=== PATIENT | female | born 1965 | race Two or more races ===

== ENCOUNTER 2016-10-12 13:46 | Emergency (ER) | payer OTHER ==
[~2016-10-12] VITALS: Ht 157.5 cm; Wt 72.6 kg
[~2016-10-12 13:46] MED LIST: ACULAR5 ML LEFT EYE; ALBUTEROL SULF8.5 GM INH; AZITHROMYCIN250 MG ORAL; CIPRO500 MG PO; FLONASE1 SPRAYS NASAL; IBUPROFEN600 MG ORAL; IMODIUM2 MG/10 ML GT; NKM; NORCO 5-325 TA1 EACH ORAL; POLYTRIM EYE DR10 M1 LEFT EYE; PROAIR HFA8.5 GM INH; PROMETHAZINE-D118 ML ORAL; ZITHROMAX250 MG ORAL; ZOFRAN4 M1 ORAL; ZYRTEC10 M3 ORAL
[2016-10-12 14:01] VITALS: BP 125/73
--- NOTE | 2016-10-12 14:29 | Emergency Room Report ---
History of Present Illness General Chief Complaint: Skin Rash/Abscess Source: Patient Present Illness HPI 50 YO female presents to the ED c/o pain, swelling, and erythema of left ear with retained earring x 2 weeks. The patient denies discharge from the ear, reports tenderness upon palpation reports her pain as 9/10 in severity. Patient states that initially the anterior portion of the piercing started to close and was covered with and so patient attempted to pull the earring through the back opening, and was unsuccessful. She denies any compromise. denies fevers, chills, or tinnitus. Denies CP, Palpitations, LOC, AMS, dizziness, Changes in Vision, Sensation, paresthesias, or a sudden severe headache. Pt states she is UTD with Tetanus. Allergies: Coded Allergies: PENICILLINS (Unverified Allergy, Unknown, 02/11/14) Patient History Past Medical History: see triage record Past Surgical History: none Pertinent Family History: none Last Menstrual Period: Jul 2016 Now: No - unsure if in menopause, preg test 4 weeks ago negative Immunizations: UTD Reviewed Nursing Documentation: PMH: Agreed, PSxH: Agreed Nursing Documentation-PMH Past Medical History: No Stated History Review of Systems All Other Systems: negative except mentioned in HPI Physical Exam Vital Signs Date Time Temp Pulse Resp B/P Pulse Ox O2 Delivery O2 Flow Rate FiO2 10/12/16 13:53 98.6 92 18 125/73 100 Room Air Sp02 EP Interpretation: reviewed, normal General Appearance: no apparent distress, alert, GCS 15, non-toxic Head: normocephalic, atraumatic Eyes: bilateral eye PERRL, bilateral eye normal inspection ENT: hearing grossly normal, normal pharynx, no angioedema, normal voice, TMs + canals normal, other - the auricle of the left ear has a partially embeded earring retained in the cartilagenous tissues, there is mild erythema and swelling, no d/c noted. Neck: full range of motion, supple/symm/no masses Respiratory: chest non-tender, lungs clear, normal breath sounds, speaking full sentences Cardiovascular #1: regular rate, rhythm, no edema Musculoskeletal: back normal, gait/station normal, normal range of motion, non- tender, no calf tenderness Neurologic: alert, oriented x3, responsive, motor strength/tone normal, sensory intact, speech normal Psychiatric: judgement/insight normal, memory normal, mood/affect normal, no suicidal/homicidal ideation Skin: normal color, no rash, warm/dry, well hydrated, other - erythema and swelling noted to the left auricle , with embeded earring. Lymphatic: no adenopathy Procedures Incision and Drainage Incision and Drainage : Consent: Verbal Site: Left auricle Blade Size: 11 I & D Procedure: betadine prep Wound Location: head - left auricle Wound's Depth, Shape: superficial Wound Length (cm): 0 Wound Explored: foreign body removed - earring. Irrigated w/ Saline (ccs): 60 Anesthesia: 1% Lidocaine Volume Anesthetic (ccs): 1 Splint Applied?: No Sling Applied?: No Patient Tolerated: Well Complications: None Medical Decision Making PA Attestation Dr. pang is my supervising Physician whom patient management has been discussed with. Diagnostic Impression: Primary Impression: FOREIGN BODY IN LEFT EAR, INITIAL ENCOUNTER ER Course Pt. presents to the ED c/o pain, swelling, and erythema of left ear with retained earring x 2 weeks. Ddx considered but are not limited to cellulitis, abscess, retained foreign body. Vital signs: are WNL, pt. is afebrile H&PE are most consistent with foreign body of the cartilage of the left ear. ORDERS: none required at this time, the diagnosis is clinical ED INTERVENTIONS: - Incision and removal of earring. -anesthesia with 1.5cc Lidocaine DISCHARGE: At this time pt. is stable for d/c to home. Will provide printed patient care instructions, and any necessary prescriptions. Care plan and follow up instructions have been discussed with the patient prior to discharge. Last Vital Signs Date Time Temp Pulse Resp B/P Pulse Ox O2 Delivery O2 Flow Rate FiO2 10/12/16 14:01 98.6 92 18 125/73 100 Room Air Disposition: HOME, SELF-CARE Condition: Stable Scripts Bacitracin Zinc/Polymyx B Sulf (HM DOUBLE ANTIBIOTIC OINTMENT) 28.4 Gm Oint...g. 1 APPLIC TP TID for 7 Days, #28.4 GM Prov: Audra Jernigan 10/12/16 Referrals: KEL RODRIGEZ,REFERRING (PCP) Patient Instructions: Sliver Removal, Care After Additional Instructions: Take medications as directed. Follow up with PCP in 3-5 days Return sooner to ED if new symptoms occur, or current symptoms become worse. Audra Jernigan Oct 12, 2016 14:29
[2016-10-12] MEDS ORDERED: HM DOUBLE ANT28.4 G1 TP (14:30)
[2016-10-12] MEDS ORDERED: Bacitracin Oint UD TOPIC ONE (14:30)
[2016-10-12 14:37] VITALS: BP 125/73
== END 2016-10-12 14:37 | disposition home or self-care (01) ==
LOC: EMR 14:05
DX: T16.2XXA Foreign body in left ear, initial encounter (principal); X58.XXXA Exposure to other specified factors, initial encounter; Y92.9 Unspecified place or not applicable; Z88.0 Allergy status to penicillin
CPT/HCPCS: 10060; 10120

== ENCOUNTER 2017-03-28 09:09 | Emergency (ER) | payer OTHER ==
[~2017-03-28] VITALS: Ht 157.5 cm; Wt 72.6 kg
[~2017-03-28 09:09] MED LIST changes: +HM DOUBLE ANT28.4 G1 TP
[2017-03-28 09:15] VITALS: BP 141/82
[2017-03-28] MEDS ORDERED: ZOCOR20 M1 ORAL (09:22)
[2017-03-28 09:43] LABS: APPEARANCE,URINE SLIGHTLY CLOUDY; KETONES,URINE 1+ (NEGATIVE); LEUKOCYTE ESTERASE ,URINE 2+ (NEGATIVE); NITRITE,URINE NEGATIVE (NEGATIVE); PH,URINE 5 (4.5-8.0); PROTEIN,URINE 1+ (NEGATIVE); UROBILINOGEN,URINE NORMAL MG/DL (0.0-1.0)
[2017-03-28 09:56] LABS: BACTERIA,URINE MODERATE /HPF; SQUAMOUS EPITHELIAL CELL,UR FEW /LPF (NONE/OCC); WBC,URINE 15-20 /HPF (0 - 2)
--- NOTE | 2017-03-28 10:05 | Emergency Room Report ---
History of Present Illness General Chief Complaint: Back Pain-No Injury Source: Patient Present Illness HPI 51-year-old female presents ED complaining of lower back pain x1 day. Notes pain in her lower back, 9 out of 10, sharp, radiating around the hips. Denies any fevers or chills. Denies dysuria or hematuria. Denies nausea or vomiting. Patient denies any recent trauma. Patient states that she recently started simvastatin a few weeks ago. No other aggravating relieving factors. Denies any other associated symptom Allergies: Coded Allergies: PENICILLINS (Unverified Allergy, Unknown, 02/11/14) Patient History Past Medical History: none Past Surgical History: none Pertinent Family History: none Social History: Denies: alcohol use, drug use, smoking Last Menstrual Period: 03/06/17 Now: No : 4 Para: 4 Immunizations: UTD Reviewed Nursing Documentation: PMH: Agreed, PSxH: Agreed Nursing Documentation-PMH Past Medical History: No History, Except For Review of Systems All Other Systems: negative except mentioned in HPI Physical Exam Vital Signs Date Time Temp Pulse Resp B/P Pulse Ox O2 Delivery O2 Flow Rate FiO2 03/28/17 09:15 98.2 92 18 141/82 98 Room Air Sp02 EP Interpretation: reviewed, normal General Appearance: no apparent distress, alert, GCS 15, non-toxic Head: normocephalic, atraumatic Eyes: bilateral eye PERRL, bilateral eye normal inspection ENT: hearing grossly normal, normal pharynx, no angioedema, normal voice Neck: full range of motion, supple/symm/no masses Respiratory: chest non-tender, lungs clear, normal breath sounds, speaking full sentences Cardiovascular #1: regular rate, rhythm, no edema Cardiovascular #2: 2+ carotid (R), 2+ carotid (L), 2+ radial (R), 2+ radial (L) , 2+ dorsalis pedis (R), 2+ dorsalis pedis (L) Gastrointestinal: normal bowel sounds, non tender, soft, non-distended, no guarding, no rebound Rectal: deferred Genitourinary: normal inspection, no CVA tenderness Musculoskeletal: back normal, gait/station normal, normal range of motion, non- tender Neurologic: alert, oriented x3, responsive, sensory intact, speech normal, other - paraspinal lumbar tenderness Psychiatric: judgement/insight normal, memory normal, mood/affect normal, no suicidal/homicidal ideation Reflexes: 3+ bicep (R), 3+ bicep (L), 3+ tricep (R), 3+ tricep (L), 3+ knee (R) , 3+ knee (L) Skin: normal color, no rash, warm/dry, well hydrated Lymphatic: no adenopathy Medical Decision Making Diagnostic Impression: Primary Impression: UTI (urinary tract infection) Qualified Codes: N39.0 - Urinary tract infection, site not specified Additional Impression: Back pain Qualified Codes: M54.5 - Low back pain ER Course Hospital Course 51-year-old female presents to ED complaining of low back pain. no trauma Differential diagnoses include: UTI, cystitis, pyelonephritis, muscle pain Clinical course Patient placed on stretcher. After initial history and physical I ordered UA UA grossly positive for UTI. We'll treat. Pain is likely muscular. Patient is currently taking simvastatin which can create myalgias however this will likely be diffuse and not localized the back. I encouraged patient to follow with PMD if after treatment of UTI the pain persists Diagnosis - UTI, back pain Stable and discharged home with prescriptions for Rx macrobid, Motrin. Instructed to followup with PMD. Return to ED if symptoms recur or worsen Labs Test 03/28/17 09:30 Urine Color Pale yellow Urine Appearance Slightly cloudy Urine pH 5 (4.5-8.0) Urine Specific [place] 1.025 (1.005-1.035) Urine Protein 1+ (NEGATIVE) Urine Glucose (UA) 3+ (NEGATIVE) Urine Ketones 1+ (NEGATIVE) Urine Occult Blood 2+ (NEGATIVE) Urine Nitrite Negative (NEGATIVE) Urine Bilirubin Negative (NEGATIVE) Urine Urobilinogen Normal MG/DL (0.0-1.0) Urine Leukocyte Esterase 2+ (NEGATIVE) Urine RBC 2-4 /HPF (0 - 2) Urine WBC 15-20 /HPF (0 - 2) Urine Squamous Epithelial Cells Few /LPF (NONE/OCC) Urine Bacteria Moderate /HPF (NONE) Last Vital Signs Date Time Temp Pulse Resp B/P Pulse Ox O2 Delivery O2 Flow Rate FiO2 03/28/17 09:15 98.2 92 18 141/82 98 Room Air Status: improved Disposition: HOME, SELF-CARE Condition: Stable Scripts Ibuprofen* (MOTRIN*) 600 Mg Tablet 600 MG ORAL Q8H Y for For Pain, #30 TAB 0 Refills Prov: EDELMIRA GOMEZ M.D. 03/28/17 Nitrofurantoin Monohyd/M-Cryst* (MACROBID 100 MG*) 100 Mg Capsule 100 MG ORAL EVERY 12 HOURS for 7 Days, CAP Prov: EDELMIRA GOMEZ M.D. 03/28/17 Referrals: KEL RODRIGEZ,REFERRING (PCP) EDELMIRA GOMEZ M.D. Mar 28, 2017 10:05
[2017-03-28] MEDS ORDERED: IBUPROFEN600 MG ORAL (10:14)
[2017-03-28] MEDS ORDERED: NITROFURANTOIN100 M2 ORAL (10:14)
[2017-03-28 10:20] VITALS: BP 131/75
== END 2017-03-28 10:21 | disposition home or self-care (01) ==
LOC: EMR 09:27
DX: N39.0 Urinary tract infection, site not specified (principal); M54.5 Low back pain; Z88.0 Allergy status to penicillin
CPT/HCPCS: 81003; 87086; 87181; 99284

== ENCOUNTER 2017-04-17 21:00 | Emergency (ER) | payer OTHER ==
[~2017-04-17] VITALS: Ht 157.5 cm; Wt 63.5 kg
[~2017-04-17 21:00] MED LIST changes: +NITROFURANTOIN100 M2 ORAL; +ZOCOR20 M1 ORAL
[2017-04-17] MEDS ORDERED: DiphenhydrAMINE 50mg/ml Inj IVP ONE (22:30)
[2017-04-17] MEDS ORDERED: Solu-MEDROL 125mg Inj IVP ONE (22:30)
[2017-04-17 22:42] VITALS: BP 140/80
--- NOTE | 2017-04-18 00:05 | Emergency Room Report ---
History of Present Illness General Chief Complaint: Allergic Reaction Source: Patient Present Illness HPI 51YOF walk-in with contineud hives to upper extremities, back for 2 weeks Switched detergent 2 weeks ago Was already seen by PMD - took prednisone and uses benadryl PRN with improvement But hives continue Denies other new drug, pets, soap No sick contacts Denies fever/chills, blisters Allergies: Coded Allergies: PENICILLINS (Unverified Allergy, Unknown, 02/11/14) Patient History Past Medical History: none Past Surgical History: none Pertinent Family History: none Social History: Denies: alcohol use, drug use, smoking Now: No Immunizations: UTD Reviewed Nursing Documentation: PMH: Agreed, PSxH: Agreed Nursing Documentation-PMH Hx Cardiac Problems: Yes - high cholesterol Review of Systems All Other Systems: negative except mentioned in HPI Physical Exam Vital Signs Date Time Temp Pulse Resp B/P Pulse Ox O2 Delivery O2 Flow Rate FiO2 04/17/17 21:46 98.1 60 16 140/80 98 Room Air Sp02 EP Interpretation: reviewed, normal General Appearance: normal inspection, well appearing, no apparent distress, alert, non-toxic Head: normocephalic, atraumatic Eyes: bilateral eye EOMI, bilateral eye PERRL ENT: normal ENT inspection, hearing grossly normal, normal pharynx, no angioedema, normal voice Neck: normal inspection, full range of motion, supple, no bony tend Respiratory: normal inspection, lungs clear, normal breath sounds, no respiratory distress, no retraction, no accessory muscle use, no wheezing Cardiovascular #1: regular rate, rhythm, no edema Gastrointestinal: normal inspection, normal bowel sounds, non tender, soft, no guarding, no hernia Genitourinary: no CVA tenderness Musculoskeletal: normal inspection, back normal, normal range of motion, Ace' s Sign negative Neurologic: normal inspection, alert, oriented x3, responsive, airplane mechanic III-XII nml as tested, motor strength/tone normal, speech normal Psychiatric: normal inspection, judgement/insight normal, mood/affect normal Skin: other - Multiple areas of hives to back, torso, upper extremities with assoc excoriations. No blisters, vesilces Medical Decision Making Diagnostic Impression: Primary Impression: Allergic reaction Qualified Codes: T78.40XA - Allergy, unspecified, initial encounter ER Course Likely contact dermatitis, allergic reaction to new detergent VSS. Afebrile No blisters, vesicles Improved with IV steroid, benadryl here Advised washing all clothes, towels, sheets with previously used detergent Follow up with PMD for Derm referral DC home Last Vital Signs Date Time Temp Pulse Resp B/P Pulse Ox O2 Delivery O2 Flow Rate FiO2 04/17/17 22:42 98.1 84 16 140/80 98 Room Air Status: improved Disposition: HOME, SELF-CARE Condition: Improved Patient Instructions: Lisa, [id number] Additional Instructions: - STOP using new detergent - Wash all clothes, sheets and towels in the detergent you used previously - Follow up with primary care doctor for dermatology referral TATYANA PEDERSEN M.D. Apr 18, 2017 00:05
[2017-04-18 00:17] VITALS: BP 134/74
--- NOTE | 2017-04-21 18:30 | Cardiology Report ---
APPROVED REPORT EKG Measurement Heart [id number] [place] [id number] Normal sinus rhythm Normal ECG
== END 2017-04-18 00:16 | disposition home or self-care (01) ==
LOC: EMR 21:45
DX: T78.49XA Other allergy, initial encounter (principal); X58.XXXA Exposure to other specified factors, initial encounter; Z88.0 Allergy status to penicillin
CPT/HCPCS: 93005; 96374; 96375; 99284; J1200; J2930

== ENCOUNTER 2017-07-22 20:10 | Emergency (ER) | payer OTHER ==
[~2017-07-22] VITALS: Ht 162.6 cm; Wt 69.9 kg
--- NOTE | 2017-07-22 20:42 | Emergency Room Report ---
History of Present Illness General Chief Complaint: Abdominal Pain Source: Patient (EDELMIRA GOMEZ M.D.) Present Illness HPI 51-year-old female presents to ED for evaluation. Patient complaining of abdominal pain for last 3 days. Pain is sharp, 7/10, localized to right lower quadrant, nonradiating. Patient was sent here by PMD to rule out appendicitis. Denies fevers or chills. Denies nausea or vomiting. No other aggravating relieving factors. Denies any other associated symptoms (EDELMIRA GOMEZ M.D.) Allergies: Coded Allergies: PENICILLINS (Unverified Allergy, Unknown, 02/11/14) Patient History Past Medical History: none Past Surgical History: none Pertinent Family History: none Social History: Denies: smoking, alcohol use, drug use Last Menstrual Period: last week Now: No : 6 Immunizations: UTD Reviewed Nursing Documentation: PMH: Agreed, PSxH: Agreed (EDELMIRA GOMEZ M.D.) Nursing Documentation-PMH Hx Cardiac Problems: Yes - high cholesterol (EDELMIRA GOMEZ M.D.) Review of Systems All Other Systems: negative except mentioned in HPI (EDELMIRA GOMEZ M.D.) Physical Exam Vital Signs Date Time Temp Pulse Resp B/P (MAP) Pulse Ox O2 Delivery O2 Flow Rate FiO2 07/22/17 20:14 99.1 91 18 114/71 98 Room Air Sp02 EP Interpretation: reviewed, normal General Appearance: no apparent distress, alert, GCS 15, non-toxic Head: normocephalic, atraumatic Eyes: bilateral eye normal inspection, bilateral eye PERRL ENT: hearing grossly normal, normal pharynx, no angioedema, normal voice Neck: full range of motion, supple/symm/no masses Respiratory: chest non-tender, lungs clear, normal breath sounds, speaking full sentences Cardiovascular #1: regular rate, rhythm, no edema Cardiovascular #2: 2+ carotid (R), 2+ carotid (L), 2+ radial (R), 2+ radial (L) , 2+ dorsalis pedis (R), 2+ dorsalis pedis (L) Gastrointestinal: normal bowel sounds, soft, non-distended, no guarding, no rebound, tenderness - RLQ Rectal: deferred Genitourinary: normal inspection, no CVA tenderness Musculoskeletal: back normal, gait/station normal, normal range of motion, non- tender Neurologic: alert, oriented x3, responsive, motor strength/tone normal, sensory intact, speech normal Psychiatric: judgement/insight normal, memory normal, mood/affect normal, no suicidal/homicidal ideation Reflexes: 3+ bicep (R), 3+ bicep (L), 3+ tricep (R), 3+ tricep (L), 3+ knee (R) , 3+ knee (L) Skin: normal color, no rash, warm/dry, well hydrated Lymphatic: no adenopathy (EDELMIRA GOMEZ M.D.) Medical Decision Making Diagnostic Impression: Primary Impression: Abdominal pain Qualified Codes: R10.31 - Right lower quadrant pain ER Course Patient presents with abdominal pain. She was signed out to me. CT scan report pending. CT scan unremarkable. Patient felt better. We'll discharge him. (VEDA SCHUMACHER M.D.) CT/MRI/US Diagnostic Results CT/MRI/US Diagnostic Results : Imaging Test Ordered: CT abdomen and pelvis Impression Read by radiologist. No acute process. (VEDA SCHUMACHER M.D.) Last Vital Signs Date Time Temp Pulse Resp B/P (MAP) Pulse Ox O2 Delivery O2 Flow Rate FiO2 07/22/17 20:14 99.1 91 18 114/71 98 Room Air (EDELMIRA GOMEZ M.D.) Status: improved (VEDA SCHUMACHER M.D.) Disposition: HOME, SELF-CARE Condition: Stable Scripts Ibuprofen* (MOTRIN*) 600 Mg Tablet 600 MG ORAL THREE TIMES A DAY, #30 TAB 0 Refills Prov: VEDA SCHUMACHER M.D. 07/22/17 Patient Instructions: Abdominal Pain, Adult Additional Instructions: Followup with your DrEdmond in 2-3 days. Return if symptom worsen. EDELMIRA GOMEZ M.D. Jul 22, 2017 20:42 VEDA SCHUMACHER M.D. Jul 22, 2017 22:28
[2017-07-22 20:43] VITALS: BP 118/62
[2017-07-22 20:49] LABS: BASOPHILS % (AUTO) 1.3 % (0.0-2.0); LYMPHOCYTES % (AUTO) 31.9 % (20.0-45.0); MEAN CORPUSCULAR HEMOGLOBIN 26.5 PG (27.0-31.0); MEAN CORPUSCULAR HGB CONC 30.3 G/DL (32.0-36.0); MEAN CORPUSCULAR VOLUME 88 FL (80-99); MEAN PLATELET VOLUME 6.4 FL (6.5-10.1); MONOCYTES % (AUTO) 7.9 % (1.0-10.0); NEUTROPHILS % (AUTO) 57.8 % (45.0-75.0); PLATELET COUNT 399 K/UL (150-450); RED BLOOD COUNT 4.39 M/UL (4.20-5.40); RED CELL DISTRIBUTION WIDTH 14.5 % (11.6-14.8); WHITE BLOOD COUNT 7.6 K/UL (4.8-10.8)
[2017-07-22 20:54] LABS: APPEARANCE,URINE SLIGHTLY CLOUDY; KETONES,URINE 1+ (NEGATIVE); LEUKOCYTE ESTERASE ,URINE 1+ (NEGATIVE); NITRITE,URINE NEGATIVE (NEGATIVE); PH,URINE 6.5 (4.5-8.0); PROTEIN,URINE NEGATIVE (NEGATIVE); UROBILINOGEN,URINE NORMAL MG/DL (0.0-1.0)
[2017-07-22 20:59] LABS: BACTERIA,URINE OCCASIONAL /HPF; RBC,URINE 0-2 /HPF (0 - 2); SQUAMOUS EPITHELIAL CELL,UR MANY /LPF (NONE/OCC); WBC,URINE 0-2 /HPF (0 - 2)
[2017-07-22 21:13] LABS: ALANINE AMINOTRANSFERASE 41 U/L (12-78); ALBUMIN/GLOBULIN RATIO 0.9 (1.0-2.7); ANION GAP 9 mmol/L (5-15); ASPARTATE AMINO TRANSFERASE 19 U/L (15-37); CALCIUM 9.2 MG/DL (8.5-10.1); CARBON DIOXIDE 28 MMOL/L (21-32); CHLORIDE 102 MMOL/L (98-107); CREATININE 0.7 MG/DL (0.55-1.30); GLOMERULAR FILTRATION RATE > 60 mL/min (>60); LIPASE 192 U/L (73-393); POTASSIUM 3.6 MMOL/L (3.5-5.1); SODIUM 139 MMOL/L (136-145)
[2017-07-22] MEDS ORDERED: IBUPROFEN600 MG ORAL (22:28)
[2017-07-22 22:35] VITALS: BP_SYST 102; BP_SYST 118; BP_DIAS 62; BP_DIAS 64
--- NOTE | 2017-07-23 09:01 | Diagnostic Imaging Report ---
Indication: ABD PAIN right quadrant pain Technique: Spiral acquisitions obtained through the abdomen and pelvis. No oral contrast utilized, per emergency room physician request No IV contrast utilized, per referring physician request.. Multiplanar reconstructions were generated. Total dose length product 724 mGycm. CTDIvol(s) port mGy. Dose reduction achieved using automated exposure control Comparison: 02/12/2014 Findings: No evidence of diverticulosis or diverticulitis. Normal appendix. No small bowel distention. No free or loculated intraperitoneal air or fluid is evident. Distal esophagus, stomach, duodenum are unremarkable. Lack of IV contrast limits assessment of the solid organs. The liver is very mildly hypoattenuating, consistent with very mild fatty change. No focal abnormality. The gallbladder, bile ducts pancreas, spleen, adrenals, kidneys are all unremarkable. No mesenteric or retroperitoneal mass or adenopathy. The uterus is diffusely enlarged, lobulated, bulky, consistent with fibroid change. No pelvic mass or adenopathy otherwise. The included lung bases are clear there there are bilateral L5 pars interarticularis defects. No associated spondylolisthesis. When compared to prior, the previously reported left lower pole intrarenal calculus is no longer evident. Impression: No acute abnormality Enlarged fibroid uterus, also previously described Mild fatty liver, also previously described Bilateral L5 spondylolysis. No associated spondylolisthesis This agrees with the preliminary interpretation provided overnight by [facility] telerad[facility] service. The CT scanner at [facility] is accredited by the [employer] and the scans are performed using protocols designed to limit radiation exposure to as low as reasonably achievable to attain images of sufficient resolution adequate for diagnostic evaluation.
== END 2017-07-22 22:36 | disposition home or self-care (01) ==
LOC: EMR 20:30
DX: R10.31 Right lower quadrant pain (principal); D25.9 Leiomyoma of uterus, unspecified; K76.0 Fatty (change of) liver, not elsewhere classified; M43.06 Spondylolysis, lumbar region; Z88.0 Allergy status to penicillin
CPT/HCPCS: 36415; 74176; 80053; 81003; 81025; 83690; 85025; 96360; 99284

== ENCOUNTER 2017-09-30 21:24 | Emergency (ER) | payer OTHER ==
[~2017-09-30] VITALS: Ht 162.6 cm; Wt 70.3 kg
[2017-09-30 22:00] VITALS: BP 137/87
[2017-09-30] MEDS ORDERED: Methocarbamol 750mg tab ORAL ONE (22:15)
[2017-09-30] MEDS ORDERED: IBUPROFEN600 MG ORAL (22:42)
[2017-09-30] MEDS ORDERED: ROBAXIN-750750 MG PO (22:42)
[2017-09-30 22:45] VITALS: BP 137/87
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
== END 2017-09-30 22:45 | disposition home or self-care (01) ==
LOC: EMR 21:59
DX: S16.1XXA Strain of muscle, fascia and tendon at neck level, initial encounter (principal); Z88.0 Allergy status to penicillin; E78.00 Pure hypercholesterolemia, unspecified; V43.52XA Car driver injured in collision with other type car in traffic accident, initial encounter; Y92.410 Unspecified street and highway as the place of occurrence of the external cause
CPT/HCPCS: 99283

== ENCOUNTER 2018-03-30 13:40 | Emergency (ER) | payer OTHER ==
[~2018-03-30] VITALS: Ht 162.6 cm; Wt 70.3 kg
[~2018-03-30 13:40] MED LIST changes: +ROBAXIN-750750 MG PO
[2018-03-30] MEDS ORDERED: NKM (14:02)
[2018-03-30 14:18] VITALS: BP 139/79
--- NOTE | 2018-03-30 14:29 | Emergency Room Report ---
History of Present Illness General Chief Complaint: Earache Source: Patient Present Illness HPI 52-year-old female presents emergency department complaining of 8 out of 10 in severity in the right ear progressive 3 days. Patient states that she had some discharge and she attempted to clean her ear with a Q-tip and she thinks she may have made her symptoms worse. Patient states that she has a foreign body sensation inside of her ear. Reports decrease in hearing out of the affected ears she denies blood. She denies external ear tenderness, fevers, chills, swollen swollen tender lymph nodes or tenderness in the right side of the jaw. She denies rashes. Allergies: Coded Allergies: EGG (Verified Allergy, Unknown, 03/30/18) PENICILLINS (Unverified Allergy, Unknown, 02/11/14) SIMVASTATIN (Verified Allergy, Unknown, 03/30/18) Patient History Past Medical History: see triage record Past Surgical History: none Pertinent Family History: none Last Menstrual Period: 02/24/18 Now: No Reviewed Nursing Documentation: PMH: Agreed; PSxH: Agreed Nursing Documentation-PMH Hx Cardiac Problems: Yes - high cholesterol Review of Systems All Other Systems: negative except mentioned in HPI Physical Exam Vital Signs Date Time Temp Pulse Resp B/P (MAP) Pulse Ox O2 Delivery O2 Flow Rate FiO2 03/30/18 13:58 98.3 97 18 139/79 98 98.2 Sp02 EP Interpretation: reviewed, normal General Appearance: no apparent distress, alert, GCS 15, non-toxic Head: normocephalic, atraumatic Eyes: bilateral eye normal inspection, bilateral eye PERRL ENT: hearing grossly normal, normal voice, nasal congestion, other - The right ear was macerated in appearance it opaque white discharge noted the TM is within normal limits/nonruptured. Mild external auricle tenderness. No preauricular lymph nodes. Neck: full range of motion, no bony tend Respiratory: lungs clear, normal breath sounds, speaking full sentences Cardiovascular #1: regular rate, rhythm Musculoskeletal: back normal, gait/station normal, normal range of motion Neurologic: alert, oriented x3, responsive, motor strength/tone normal, sensory intact, normal gait, speech normal, grossly normal Psychiatric: judgement/insight normal Skin: normal color, no rash, warm/dry, well hydrated Lymphatic: no adenopathy Medical Decision Making PA Attestation Dr. pang is my supervising Physician whom patient management has been discussed with. Diagnostic Impression: Primary Impression: Otitis externa Qualified Codes: H60.501 - Unspecified acute noninfective otitis externa, right ear ER Course 52-year-old female presents emergency department complaining of 8 out of 10 in severity in the right ear progressive 3 days. Patient states that she had some discharge and she attempted to clean her ear with a Q-tip and she thinks she may have made her symptoms worse. Patient states that she has a foreign body sensation inside of her ear. Reports decrease in hearing out of the affected ears she denies blood. She denies external ear tenderness, fevers, chills, swollen swollen tender lymph nodes or tenderness in the right side of the jaw. She denies rashes. Ddx considered but are not limited to OM, OE, mastoiditis, TM perforation, FB Vital signs: are WNL, pt. is afebrile H&PE are most consistent with otitis Externa Right ear. ORDERS: none required at this time, the diagnosis is clinical -OTOSCOPY: The right ear was macerated in appearance it opaque white discharge noted the TM is within normal limits/nonruptured. Mild external auricle tenderness. No preauricular lymph nodes. ED INTERVENTIONS: None required at this time. DISCHARGE: At this time pt. is stable for d/c to home. With PO ABX. Will provide printed patient care instructions, and any necessary prescriptions. Care plan and follow up instructions have been discussed with the patient prior to discharge. RX: Augmentin Last Vital Signs Date Time Temp Pulse Resp B/P (MAP) Pulse Ox O2 Delivery O2 Flow Rate FiO2 03/30/18 14:18 98.2 78 18 139/79 98 98.2 Disposition: HOME, SELF-CARE Condition: Stable Scripts Acetaminophen* (TYLENOL EXTRA STRENGTH*) 500 Mg Tablet 500 MG ORAL Q6H, #20 TAB 0 Refills Prov: Audra Jernigan 03/30/18 Ciprofloxacin Hcl/Dexameth (CIPRODEX OTIC SUSPENSION) 7.5 Ml Drops.susp 4 DROP RIGHT EAR TWICE A DAY for 7 Days, #7.5 ML Prov: Audra Jernigan 03/30/18 Patient Instructions: Otitis Externa, [id number] Additional Instructions: Take medications as directed. Follow up with a Primary Care Provider in 3-5 days, even if your symptoms have resolved. --Please review list of primary care clinics, if you do not already have a primary care provider Return sooner to ED if new symptoms occur, or current symptoms become worse. - Please note that this Emergency Department Report was dictated using NaPoprav[employer] installation mechanic technology software, occasionally this can lead to erroneous entry secondary to interpretation by the dictation equipment. Audra Jernigan Mar 30, 2018 14:29
[2018-03-30] MEDS ORDERED: CIPRODEX OTIC7.5 M1 RIGHT EAR (14:30)
[2018-03-30] MEDS ORDERED: TYLENOL EXTRA500 MG ORAL (14:30)
[2018-03-30 15:30] VITALS: BP 139/79
== END 2018-03-30 15:30 | disposition home or self-care (01) ==
LOC: EMR 14:30
DX: H60.91 Unspecified otitis externa, right ear (principal); E78.00 Pure hypercholesterolemia, unspecified; Z88.0 Allergy status to penicillin; Z88.8 Allergy status to other drugs, medicaments and biological substances; Z91.012 Allergy to eggs
CPT/HCPCS: 99284

== ENCOUNTER 2018-05-22 18:08 | Emergency (ER) | payer OTHER ==
[~2018-05-22] VITALS: Ht 162.6 cm; Wt 68.0 kg
[~2018-05-22 18:08] MED LIST changes: +CIPRODEX OTIC7.5 M1 RIGHT EAR; +TYLENOL EXTRA500 MG ORAL
[2018-05-22 18:23] VITALS: BP 127/78
[2018-05-22] MEDS ORDERED: ROBAXIN-750750 MG PO (18:40)
[2018-05-22] MEDS ORDERED: IBUPROFEN600 MG ORAL (18:40)
[2018-05-22 18:46] VITALS: BP 127/78
--- NOTE | 2018-05-22 19:38 | Emergency Room Report ---
History of Present Illness General Chief Complaint: General Complaint Source: Patient, Medical Record Present Illness HPI 52-year-old female presents ED for evaluation. Patient is complaining of bilateral leg pain 8 days. States that she walks a lot and is on walking in heels. Pain is throbbing, 8 out of 10, nonradiating. States she is able to walk. Denies any recent injury or fall. No other aggravating relieving factors. Denies any other associated symptoms Allergies: Coded Allergies: EGG (Verified Allergy, Unknown, 03/30/18) PENICILLINS (Unverified Allergy, Unknown, 02/11/14) SIMVASTATIN (Verified Allergy, Unknown, 03/30/18) Patient History Past Medical History: none Past Surgical History: none Pertinent Family History: none Social History: Denies: smoking, alcohol use, drug use Last Menstrual Period: 04/20/2018 Now: No Immunizations: UTD Reviewed Nursing Documentation: PMH: Agreed; PSxH: Agreed Nursing Documentation-PMH Hx Cardiac Problems: Yes - high cholesterol Hx Hypertension: No Hx Pacemaker: No Hx Asthma: No Hx COPD: No Hx Diabetes: No Hx Cancer: No Hx Gastrointestinal Problems: No Hx Dialysis: No History Of Psychiatric Problem: No Hx Neurological Problems: No Hx Cerebrovascular Accident: No Hx Seizures: No Review of Systems All Other Systems: negative except mentioned in HPI Physical Exam Vital Signs Date Time Temp Pulse Resp B/P (MAP) Pulse Ox O2 Delivery O2 Flow Rate FiO2 05/22/18 18:13 98.5 91 16 127/78 99 Room Air 98.4 Sp02 EP Interpretation: reviewed, normal General Appearance: no apparent distress, alert, GCS 15, non-toxic Head: normocephalic, atraumatic Eyes: bilateral eye normal inspection, bilateral eye PERRL ENT: hearing grossly normal, normal pharynx, no angioedema, normal voice Neck: full range of motion, supple/symm/no masses Respiratory: chest non-tender, lungs clear, normal breath sounds, speaking full sentences Cardiovascular #1: regular rate, rhythm, no edema Cardiovascular #2: 2+ carotid (R), 2+ carotid (L), 2+ radial (R), 2+ radial (L) , 2+ dorsalis pedis (R), 2+ dorsalis pedis (L) Gastrointestinal: normal bowel sounds, non tender, soft, non-distended, no guarding, no rebound Rectal: deferred Genitourinary: normal inspection, no CVA tenderness Musculoskeletal: back normal, gait/station normal, normal range of motion, tender - bilateral thigh and calf pain. no bruising/deformity Neurologic: alert, oriented x3, responsive, motor strength/tone normal, sensory intact, speech normal Psychiatric: judgement/insight normal, memory normal, mood/affect normal, no suicidal/homicidal ideation Reflexes: 3+ bicep (R), 3+ bicep (L), 3+ tricep (R), 3+ tricep (L), 3+ knee (R) , 3+ knee (L) Skin: normal color, no rash, warm/dry, well hydrated Lymphatic: no adenopathy Medical Decision Making Diagnostic Impression: Primary Impression: Muscle strain ER Course Hospital Course 52 yo F presents to ED c/o bilateral leg pain Differential diagnoses include: Fracture, dislocation, sprain, contusion Clinical course Patient placed on stretcher. After initial history, his exam reveals a middle- aged female in no acute distress. On exam there is no evidence of bony deformity or bruising to the legs. Full range of motion. There is palpable thigh and calf tenderness. No bony tenderness. Pain appears muscular. Discussed findings with patient. We will discharge with analgesics and muscle relaxers Diagnosis - muscle strain Stable and discharged to home with prescription for Motrin, robaxin. apply heat. weight bear as tolerated. Followup with PMD. Return to ED if symptoms recur or worsen Last Vital Signs Date Time Temp Pulse Resp B/P (MAP) Pulse Ox O2 Delivery O2 Flow Rate FiO2 05/22/18 18:46 98.4 89 16 127/78 99 Room Air 209.1 Status: improved Disposition: HOME, SELF-CARE Condition: Stable Scripts Methocarbamol* (ROBAXIN-750*) 750 Mg Tablet 750 MG PO TID, #21 TAB 0 Refills Prov: oJnes Sorto MD 05/22/18 Ibuprofen* (MOTRIN*) 600 Mg Tablet 600 MG ORAL Q8H PRN for For Pain, #30 TAB 0 Refills Prov: Jones Sorto MD 05/22/18 Referrals: KEL RODRIGEZ,REFERRING (PCP) Patient Instructions: Muscle Strain, Lvrr-ve-Aaet Jones Sorto MD May 22, 2018 19:38
== END 2018-05-22 18:50 | disposition home or self-care (01) ==
LOC: EMR 18:48
DX: S76.912A Strain of unspecified muscles, fascia and tendons at thigh level, left thigh, initial encounter (principal); S76.911A Strain of unspecified muscles, fascia and tendons at thigh level, right thigh, initial encounter; S86.912A Strain of unspecified muscle(s) and tendon(s) at lower leg level, left leg, initial encounter; S86.911A Strain of unspecified muscle(s) and tendon(s) at lower leg level, right leg, initial encounter; X58.XXXA Exposure to other specified factors, initial encounter; Y93.9 Activity, unspecified; Y92.89 Other specified places as the place of occurrence of the external cause; E78.00 Pure hypercholesterolemia, unspecified; Z88.0 Allergy status to penicillin; Z91.012 Allergy to eggs; Z88.8 Allergy status to other drugs, medicaments and biological substances
CPT/HCPCS: 99283

== ENCOUNTER 2018-08-27 12:28 | Emergency (ER) | payer MEDICAID, OTHER ==
[~2018-08-27] VITALS: Ht 162.6 cm; Wt 70.3 kg
[2018-08-27 12:41] VITALS: BP 145/76
--- NOTE | 2018-08-27 13:12 | Emergency Room Report ---
History of Present Illness General Chief Complaint: General Complaint Source: Patient, Medical Record Present Illness HPI 52-year-old female patient presents the ER complaining of allergic reaction and itchy rash for the past 8 days. Reports on 1 week ago, states symptoms began after taking new medications that she was prescribed for high cholesterol and high blood sugar, reports symptoms were present before taking medications as well. States concerned she is allergic to her new medications.. Denies muscle weakness or pain. Denies history of diabetes currently. Reports history of similar symptoms in the past, states she was given IV steroids on previous visit for symptom relief. Reports currently has a rash all over her body, no rash visualized in the ER. Reports that rash sometimes occurs before after itching in the area she feels itchy. Denies fever, vomiting, chest pain, shortness of breath, abdominal pain. Reports had abdominal pain 1 week ago, was seen by her primary care provider and was told to come to the ER to rule out appendicitis, states that she did not come to the ER because she was afraid. Reports pain symptoms improved. Denies abdominal pain currently. Reports history of eating spicy foods. Reports sometimes has a rash after eating certain foods. Reports feeling upper abdominal pain after eating spicy foods. Denies vomiting or coffee-ground emesis. Reports history of multiple allergies. Allergies: Coded Allergies: EGG (Verified Allergy, Unknown, 08/27/18) PENICILLINS (Unverified Allergy, Unknown, 08/27/18) SIMVASTATIN (Verified Allergy, Unknown, 08/27/18) Patient History Past Medical History: see triage record Last Menstrual Period: on period now Reviewed Nursing Documentation: PMH: Agreed; PSxH: Agreed Nursing Documentation-PMH Past Medical History: No History, Except For Hx Cardiac Problems: Yes - high cholesterol Hx Hypertension: No Hx Pacemaker: No Hx Asthma: No Hx COPD: No Hx Diabetes: No Hx Cancer: No Hx Gastrointestinal Problems: No Hx Dialysis: No Hx Neurological Problems: No Hx Cerebrovascular Accident: No Hx Seizures: No Review of Systems All Other Systems: negative except mentioned in HPI Physical Exam Vital Signs Date Time Temp Pulse Resp B/P (MAP) Pulse Ox O2 Delivery O2 Flow Rate FiO2 08/27/18 12:34 98.8 101 16 145/76 97 Sp02 EP Interpretation: reviewed, normal General Appearance: well appearing, no apparent distress, alert, GCS 15, non- toxic Head: normocephalic, atraumatic Eyes: bilateral eye normal inspection, bilateral eye PERRL ENT: hearing grossly normal, normal pharynx, no angioedema, normal voice, uvula midline, moist mucus membranes Neck: full range of motion Respiratory: lungs clear, normal breath sounds, no rhonchi, no respiratory distress, no accessory muscle use, no wheezing, speaking full sentences Cardiovascular #1: regular rate, rhythm, no edema Gastrointestinal: non tender, soft, no mass, non-distended, no guarding, no rebound, other - Negative Lorenzo, negative obturator, negative Rovsing Genitourinary: no CVA tenderness Musculoskeletal: back normal, digits/nails normal, gait/station normal, normal range of motion, non-tender Neurologic: alert, oriented x3, responsive, motor strength/tone normal, sensory intact Psychiatric: mood/affect normal Skin: no rash, other - No hives, no urticaria, excoriations noted on left lateral thigh Medical Decision Making PA Attestation Dr. Graff is my supervising Physician whom patient management has been discussed with. Diagnostic Impression: Primary Impression: Allergic reaction Additional Impression: Acid reflux ER Course Pt. presents to the ED c/o allergic reaction. Ddx considered but are not limited to allergic reaction, food allergy, contact dermatitis, anaphylaxis, angioedema, myositis. Denies hematuria, denies muscle weakness or fatigue, low suspicion for myositis , does not require labs at this time. Vital signs: are WNL, pt. is afebrile ER COURSE: Observed itching thigh pain ER, no rash or urticaria noted, no hives. Patient provided with Decadron and Pepcid for itching symptoms. PE benign. NO hives, lungs clear to auscultation, no stridor, no angioedema, patient speaking in full sentences without difficulty. Low suspicion for anaphylaxis. 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 Patient denies pain currently. Informed patient to return to ER pain symptoms return. Patient reports symptoms began after eating spicy food sometimes, advised patient she may have acid reflux, begin keeping food diary to track foods that cause symptoms as well as foods that cause allergy symptoms. ER precautions given. Follow-up with primary care provider to discuss referral to research support specialist. Track foods that may cause allergy symptoms and food journal. Patient states symptoms improve prior to discharge, okay for outpatient follow- up and treatment. DISCHARGE: At this time pt is stable for d/c to home. Patient is resting comfortably, in no acute distress, nontoxic appearing, talking without difficulty. Patient to take medications as instructed Will provide with patient care instructions and any necessary prescriptions. Care plan and follow-up instructions provided. Patient instructed to follow-up with primary care provider in 3 - 5 days. Patient questions asked and answered. Patient reports understanding and agreement to treatment plan. ER precautions given. Patient instructed to return to ER immediately for any new or worsening of symptoms including but not limited to increasing SOB, persistent fever, chest pain, intractable vomiting. - Please note that this Emergency Department Report was dictated using [employer] sales technology software, occasionally this can lead to erroneous entry secondary to interpretation by the dictation equipment. Last Vital Signs Date Time Temp Pulse Resp B/P (MAP) Pulse Ox O2 Delivery O2 Flow Rate FiO2 08/27/18 12:34 98.8 101 16 145/76 97 Status: improved Disposition: HOME, SELF-CARE Condition: Stable Scripts Famotidine (PEPCID AC) 10 Mg Tablet 10 MG PO DAILY, #30 TAB Prov: Luis Antonio Carrera 08/27/18 Patient Instructions: Food Allergy, [id number]-[id number], Food Choices for Gastroesophageal Reflux Disease, Adult, [id number], Hives, [id number] Additional Instructions: Followup with primary care provider in 3 -5 days. Discuss referral to research support specialist. Keep food journal, monitor for foods that cause symptoms to occur. Return to ER immediately if abdominal pain symptoms return. Avoid spicy foods. Take ydroxyzine for itching symptoms. Take medications as directed. Patient questions asked and answered. ER precautions given, patient instructed to return to ER immediately for any new or worsening of symptoms. Discussed referral to research support specialist. Luis Antonio Carrera Aug 27, 2018 13:12
[2018-08-27] MEDS ORDERED: FERROUS SULFAT500 G1 MC (13:13)
[2018-08-27] MEDS ORDERED: SIMVASTATIN40 MG ORAL (13:13)
[2018-08-27] MEDS ORDERED: MAPAP325 MG/10. PO (13:13)
[2018-08-27] MEDS ORDERED: NON-ASPIRIN325 MG PO (13:13)
[2018-08-27] MEDS ORDERED: Dexamethasone 4mg/ml vial ONE (13:13)
[2018-08-27] MEDS ORDERED: GLIPIZIDE10 MG PO (13:13)
[2018-08-27] MEDS ORDERED: HYDROXYZINE HCL25 M1 PO (13:13)
[2018-08-27] MEDS ORDERED: Dexamethasone 20mg/5ml IM ONE (13:15)
[2018-08-27] MEDS ORDERED: PEPCID AC10 MG PO (13:32)
[2018-08-27 13:52] VITALS: BP 138/80
== END 2018-08-27 13:52 | disposition home or self-care (01) ==
LOC: EMR 12:50
DX: T78.40XA Allergy, unspecified, initial encounter (principal); X58.XXXA Exposure to other specified factors, initial encounter; K21.9 Gastro-esophageal reflux disease without esophagitis; E78.00 Pure hypercholesterolemia, unspecified; Z88.0 Allergy status to penicillin; Z88.8 Allergy status to other drugs, medicaments and biological substances; Z91.012 Allergy to eggs
CPT/HCPCS: 96372; 99283; J1100

== ENCOUNTER 2019-03-05 13:45 | Emergency (ER) | payer MEDICAID ==
[~2019-03-05] VITALS: Ht 162.6 cm; Wt 72.6 kg
[~2019-03-05 13:45] MED LIST changes: +FERROUS SULFAT500 G1 MC; +GLIPIZIDE10 MG PO; +HYDROXYZINE HCL25 M1 PO; +MAPAP325 MG/10. PO; +NON-ASPIRIN325 MG PO; +PEPCID AC10 MG PO; +SIMVASTATIN40 MG ORAL
[2019-03-05] MEDS ORDERED: UNOBMED (13:54)
[2019-03-05 14:00] VITALS: BP 133/80
--- NOTE | 2019-03-05 14:07 | NUR ---
ED Nurse Note: pt walked in c/o heavy vaginal bleeding since last night pt states she has not had a period for 3 months and all of a sudden started bleeding. PT also c/o rt ovarian pain. awaiting [facility].
--- NOTE | 2019-03-05 14:26 | NUR ---
ED Nurse Note: blood and urine sent to lab pt down to US
--- NOTE | 2019-03-05 14:30 | Emergency Room Report ---
History of Present Illness General Chief Complaint: Vaginal Source: Medical Record Present Illness HPI 53 YO female presents to the ED C/O profuse vaginal bleeding since yesterday accompanied by right adnexal pain/ttp that she rates as 9/10 in severity. Pt. reports she is in menopause and last period was 3 mos ago. Denies hx of fibroids , reports having uterine pain in the past and was in the middle of being worked up for it but her insurance changed. She denies N/V/F/C, denies abdominal pain, constipation or diarrhea. Pt. reports heavy bleeding where she is soaking through super absorbency pad every 3 hours. Denies trauma or fall. She reports feeling weak due to blood loss. pt. denies syncope or palpitations. Denies hx of anemia. Allergies: Coded Allergies: EGG (Verified Allergy, Unknown, 08/27/18) PENICILLINS (Unverified Allergy, Unknown, 08/27/18) SIMVASTATIN (Verified Allergy, Unknown, 08/27/18) Patient History Past Medical History: see triage record Past Surgical History: none Pertinent Family History: none Last Menstrual Period: 03/05/19 Reviewed Nursing Documentation: PMH: Agreed; PSxH: Agreed Nursing Documentation-PMH Past Medical History: No History, Except For Hx Cardiac Problems: Yes - high cholesterol Hx Hypertension: No Hx Pacemaker: No Hx Asthma: No Hx COPD: No Hx Diabetes: No Hx Cancer: No Hx Gastrointestinal Problems: No Hx Dialysis: No Hx Neurological Problems: No Hx Cerebrovascular Accident: No Hx Seizures: No Review of Systems All Other Systems: negative except mentioned in HPI Physical Exam Vital Signs Date Time Temp Pulse Resp B/P (MAP) Pulse Ox O2 Delivery O2 Flow Rate FiO2 03/05/19 13:51 98.4 104 18 133/80 (97) 96 Room Air Sp02 EP Interpretation: reviewed, normal General Appearance: no apparent distress, alert, GCS 15, non-toxic Head: normocephalic, atraumatic Eyes: bilateral eye normal inspection, bilateral eye PERRL ENT: hearing grossly normal, normal voice Neck: full range of motion Respiratory: lungs clear, normal breath sounds, speaking full sentences Cardiovascular #1: regular rate, rhythm, normal capillary refill Gastrointestinal: non tender, soft Rectal: deferred Genitourinary: normal inspection, other - Right adnexal ttp Musculoskeletal: back normal, gait/station normal, normal range of motion, non- tender Neurologic: alert, oriented x3, responsive, motor strength/tone normal, sensory intact, normal gait, speech normal, grossly normal Psychiatric: judgement/insight normal Skin: normal color, no rash, warm/dry, well hydrated, other - no pallor Lymphatic: no adenopathy Medical Decision Making PA Attestation Dr. Sheets Is my supervising Physician whom patient management has been discussed with. Diagnostic Impression: Primary Impression: Fibroid, uterine Qualified Codes: D25.1 - Intramural leiomyoma of uterus ER Course 53 YO female presents to the ED C/O profuse vaginal bleeding since yesterday accompanied by right adnexal pain/ttp that she rates as 9/10 in severity. Pt. reports she is in menopause and last period was 3 mos ago. Denies hx of fibroids , reports having uterine pain in the past and was in the middle of being worked up for it but her insurance changed. She denies N/V/F/C, denies abdominal pain, constipation or diarrhea. Pt. reports heavy bleeding where she is soaking through super absorbency pad every 3 hours. Denies trauma or fall. She reports feeling weak due to blood loss. pt. denies syncope or palpitations. Denies hx of anemia. Ddx considered but are not limited to: Fibroid, ectopic , ovarian torsion, Malignancy, Spontaneous , , DUB Vital signs: are WNL, pt. is afebrile H&PE are most consistent with:Possible uterine fibroids, will r/o torsion ORDERS: -CBC:WNL- no anemia -BMP:elevated glucose 200 -UA: consistent with occult bleeding/ gross hematuria, no evidence of infection Vaginal US: multiple uterine fibroids, no free fluids. ED INTERVENTIONS: -Toradol IV 15mg -1 Liter NS IV DISCHARGE: At this time pt. is stable for d/c to home. Will provide printed patient care instructions, and any necessary prescriptions. Care plan and follow up instructions have been discussed with the patient prior to discharge. Labs Test 03/05/19 14:30 White Blood Count 6.6 K/UL (4.8-10.8) Red Blood Count 4.77 M/UL (4.20-5.40) Hemoglobin 13.8 G/DL (12.0-16.0) Hematocrit 40.8 % (37.0-47.0) Mean Corpuscular Volume 85 FL (80-99) Mean Corpuscular Hemoglobin 28.9 PG (27.0-31.0) Mean Corpuscular Hemoglobin Concent 33.8 G/DL (32.0-36.0) Red Cell Distribution Width 14.6 % (11.6-14.8) Platelet Count 320 K/UL (150-450) Mean Platelet Volume 6.6 FL (6.5-10.1) Neutrophils (%) (Auto) 62.8 % (45.0-75.0) Lymphocytes (%) (Auto) 27.5 % (20.0-45.0) Monocytes (%) (Auto) 8.2 % (1.0-10.0) Eosinophils (%) (Auto) 0.7 % (0.0-3.0) Basophils (%) (Auto) 0.8 % (0.0-2.0) Urine Color Red Urine Appearance Turbid Urine pH 5 (4.5-8.0) Urine Specific [place] 1.025 (1.005-1.035) Urine Protein 4+ (NEGATIVE) Urine Glucose (UA) 4+ (NEGATIVE) Urine Ketones 3+ (NEGATIVE) Urine Blood 5+ (NEGATIVE) Urine Nitrite Negative (NEGATIVE) Urine Bilirubin Negative (NEGATIVE) Urine Urobilinogen Normal MG/DL (0.0-1.0) Urine Leukocyte Esterase 2+ (NEGATIVE) Urine RBC Tntc /HPF (0 - 2) Urine WBC 2-4 /HPF (0 - 2) Urine Squamous Epithelial Cells Few /LPF (NONE/OCC) Urine Bacteria Few /HPF (NONE) Sodium Level 138 MMOL/L (136-145) Potassium Level 3.1 MMOL/L (3.5-5.1) Chloride Level 102 MMOL/L (98-107) Carbon Dioxide Level 23 MMOL/L (21-32) Anion Gap 13 mmol/L (5-15) Blood Urea Nitrogen 9 mg/dL (7-18) Creatinine 0.7 MG/DL (0.55-1.30) Estimat Glomerular Filtration Rate > 60 mL/min (>60) Glucose Level 220 MG/DL (74-106) Calcium Level 9.2 MG/DL (8.5-10.1) CT/MRI/US Diagnostic Results CT/MRI/US Diagnostic Results : Imaging Test Ordered: Pelvic US complete Impression "Impression: Large uterus with multiple fibroid" per official radiology report- Please see report for specific details. Last Vital Signs Date Time Temp Pulse Resp B/P (MAP) Pulse Ox O2 Delivery O2 Flow Rate FiO2 03/05/19 14:00 98.4 18 133/80 96 Room Air 03/05/19 13:51 104 Status: improved Disposition: HOME, SELF-CARE Condition: Stable Scripts Naproxen* (NAPROXEN*) 500 Mg Tablet 500 MG ORAL TWICE A DAY, #20 TAB Prov: Audra Jernigan 03/05/19 Patient Instructions: Uterine Fibroids Additional Instructions: Take medications as directed. Follow up with a Primary Care Provider in 3-5 days, even if your symptoms have resolved. --Please review list of primary care clinics, if you do not already have a primary care provider Return sooner to ED if new symptoms occur, or current symptoms become worse. - Please note that this Emergency Department Report was dictated using [email or web address] specialist technology software, occasionally this can lead to erroneous entry secondary to interpretation by the dictation equipment. Audra Jernigan Mar 05, 2019 14:30
[2019-03-05 14:46] LABS: BASOPHILS % (AUTO) 0.8 % (0.0-2.0); EOSINOPHILS % (AUTO) 0.7 % (0.0-3.0); HEMATOCRIT 40.8 % (37.0-47.0); HEMOGLOBIN 13.8 G/DL (12.0-16.0); LYMPHOCYTES % (AUTO) 27.5 % (20.0-45.0); MEAN CORPUSCULAR VOLUME 85 FL (80-99); MONOCYTES % (AUTO) 8.2 % (1.0-10.0); NEUTROPHILS % (AUTO) 62.8 % (45.0-75.0); PLATELET COUNT 320 K/UL (150-450); RED BLOOD COUNT 4.77 M/UL (4.20-5.40); RED CELL DISTRIBUTION WIDTH 14.6 % (11.6-14.8); WHITE BLOOD COUNT 6.6 K/UL (4.8-10.8)
[2019-03-05 14:51] LABS: ANION GAP 13 mmol/L (5-15); BLOOD UREA NITROGEN 9 mg/dL (7-18); CALCIUM 9.2 MG/DL (8.5-10.1); CARBON DIOXIDE 23 MMOL/L (21-32); CHLORIDE 102 MMOL/L (98-107); CREATININE 0.7 MG/DL (0.55-1.30); POTASSIUM 3.1 MMOL/L (3.5-5.1); SODIUM 138 MMOL/L (136-145)
[2019-03-05 14:52] LABS: APPEARANCE,URINE TURBID; BILIRUBIN, URINE NEGATIVE (NEGATIVE); COLOR,URINE RED; GLUCOSE, URINE (UA) 4+ (NEGATIVE); KETONES,URINE 3+ (NEGATIVE); LEUKOCYTE ESTERASE ,URINE 2+ (NEGATIVE); NITRITE,URINE NEGATIVE (NEGATIVE); PH,URINE 5 (4.5-8.0); PROTEIN,URINE 4+ (NEGATIVE); UROBILINOGEN,URINE NORMAL MG/DL (0.0-1.0)
--- NOTE | 2019-03-05 14:59 | NUR ---
ED Nurse Note: pt still in imaging
[2019-03-05] MEDS ORDERED: Ketorolac 30mg Inj IV ONE ×2 (15:00→15:30)
--- NOTE | 2019-03-05 15:10 | NUR ---
ED Nurse Note: pt back from imaging
--- NOTE | 2019-03-05 15:21 | Diagnostic Imaging Report ---
Indication: Pelvic pain Technique: Transabdominal and transvaginal images of the pelvis. Doppler interrogation of the ovaries Comparison: none Findings: Uterus measures 10.6 cm length by 5.57 m AP. Endometrium measures 4 mm thick. Multiple mostly hypoechoic masses are seen in the myometrium measuring up to 4 cm in diameter. Small nabothian cyst is seen in the cervix. The left ovary measures 4 cm length, demonstrates a 2.5 cm simple cyst. The right ovary could not be demonstrated. Left ovary demonstrates normal flow on Doppler imaging. No free cul-de-sac fluid Impression: Large uterus with multiple fibroids Normal left ovary with a presumed benign functional cyst. Nonvisualized right ovary
[2019-03-05] MEDS ORDERED: NAPROXEN500 M2 ORAL (15:30)
[2019-03-05 15:45] VITALS: BP 133/80
== END 2019-03-05 15:45 | disposition home or self-care (01) ==
LOC: EMR 15:30
DX: D25.1 Intramural leiomyoma of uterus (principal); Z88.0 Allergy status to penicillin; Z91.012 Allergy to eggs; E78.00 Pure hypercholesterolemia, unspecified
CPT/HCPCS: 36415; 76830; 76856; 80048; 81003; 85025; 96374; 96375; 99284; J1885

== ENCOUNTER 2019-06-17 09:33 | Emergency (ER) | payer MEDICAID ==
[~2019-06-17] VITALS: Ht 162.6 cm; Wt 72.6 kg
[~2019-06-17 09:33] MED LIST changes: +NAPROXEN500 M2 ORAL; +UNOBMED
--- NOTE | 2019-06-17 09:42 | NUR ---
ED Nurse Note: Patient walked into ED from home c/o productive coughing producing green phlegm, body aches, sorethroat for 3 days. patient reports left side breast/chest pain for all night yesterday, radiating to her back. patient is alert awake x4 ambulatory steady gait, breathing unlabored and even, speaking in full sentences. patient changed to a hospital gown, placed on a major general.
--- NOTE | 2019-06-17 09:55 | Emergency Room Report ---
History of Present Illness General Chief Complaint: Upper Respiratory Illness Source: Patient Present Illness HPI Patient is a 53-year-old female presents after 3 days of increased headache gradual onset. She had associated sore throat as well as a nonproductive cough. She reports having diffuse body aches as well as fever. She is type II diabetic. She reports having some left-sided chest discomfort worse with coughing. Is intermittent in nature. She denies any hemoptysis. She denies any leg swelling. She reports having some prior history of high cholesterol as well as diabetes. Allergies: Coded Allergies: EGG (Verified Allergy, Unknown, 08/27/18) PENICILLINS (Unverified Allergy, Unknown, 08/27/18) SIMVASTATIN (Verified Allergy, Unknown, 08/27/18) Patient History Past Medical History: see triage record Last Menstrual Period: 05/16/2019 Reviewed Nursing Documentation: PMH: Agreed; PSxH: Agreed Nursing Documentation-PM Past Medical History: No History, Except For Hx Cardiac Problems: Yes - high cholesterol Hx Hypertension: No Hx Pacemaker: No Hx Asthma: No Hx COPD: No Hx Diabetes: Yes Hx Cancer: No Hx Gastrointestinal Problems: No Hx Dialysis: No History Of Psychiatric Problem: No Hx Neurological Problems: No Hx Cerebrovascular Accident: No Hx Seizures: No Review of Systems All Other Systems: negative except mentioned in HPI Physical Exam Vital Signs Date Time Temp Pulse Resp B/P (MAP) Pulse Ox O2 Delivery O2 Flow Rate FiO2 06/17/19 09:35 98.1 60 16 143/64 (90) 99 Room Air Sp02 EP Interpretation: reviewed, normal General Appearance: normal inspection, well appearing, no apparent distress, alert, GCS 15 Head: atraumatic ENT: normal ENT inspection, hearing grossly normal, normal voice Neck: normal inspection, full range of motion, supple, no bony tend Respiratory: normal inspection, no respiratory distress, no retraction, wheezing Cardiovascular #1: regular rate, rhythm, no edema Gastrointestinal: normal inspection, normal bowel sounds, non tender, soft, no guarding, no hernia Genitourinary: no CVA tenderness Musculoskeletal: normal inspection, back normal, normal range of motion Neurologic: normal inspection, alert, oriented x3, responsive, senior hadoop developer III-XII nml as tested, speech normal Psychiatric: normal inspection, judgement/insight normal, mood/affect normal Medical Decision Making Diagnostic Impression: Primary Impression: Viral respiratory infection ER Course Patient presented for shortness of breath. Differential included but was not limited to anemia, pneumonia, pneumothorax, myocardial infarction, pericardial effusion, congestive heart failure, acidosis. Because of complexity of patient' s case laboratory tests and imaging studies were ordered. Patient was noted to have initial presentation which sounds like may be viral syndrome. Patient was noted to have some cardiac risk due to history of diabetes and hypertension. EKG interpreted by me showed normal sinus rhythm with a rate of [address] or T wave changes.Patient appears to be stable for outpatient management. The patient is advised to follow up with primary care doctor in 1- 2 days. Patient is advised to return if any worsening condition or if any changes in status that are concerning. This report is dictated with [employer] short order software which may occasionally lead to discrepancies related to use of this software. Labs Test 06/17/19 10:00 White Blood Count 5.9 K/UL (4.8-10.8) Red Blood Count 4.80 M/UL (4.20-5.40) Hemoglobin 13.4 G/DL (12.0-16.0) Hematocrit 41.4 % (37.0-47.0) Mean Corpuscular Volume 86 FL (80-99) Mean Corpuscular Hemoglobin 27.8 PG (27.0-31.0) Mean Corpuscular Hemoglobin Concent 32.2 G/DL (32.0-36.0) Red Cell Distribution Width 13.7 % (11.6-14.8) Platelet Count 283 K/UL (150-450) Mean Platelet Volume 6.5 FL (6.5-10.1) Neutrophils (%) (Auto) 65.3 % (45.0-75.0) Lymphocytes (%) (Auto) 22.0 % (20.0-45.0) Monocytes (%) (Auto) 9.2 % (1.0-10.0) Eosinophils (%) (Auto) 2.5 % (0.0-3.0) Basophils (%) (Auto) 1.1 % (0.0-2.0) Sodium Level 138 MMOL/L (136-145) Potassium Level 3.7 MMOL/L (3.5-5.1) Chloride Level 104 MMOL/L (98-107) Carbon Dioxide Level 23 MMOL/L (21-32) Anion Gap 11 mmol/L (5-15) Blood Urea Nitrogen 10 mg/dL (7-18) Creatinine 0.7 MG/DL (0.55-1.30) Estimat Glomerular Filtration Rate > 60 mL/min (>60) Glucose Level 187 MG/DL (74-106) Calcium Level 8.6 MG/DL (8.5-10.1) Total Bilirubin 0.4 MG/DL (0.2-1.0) Aspartate Amino Transf (AST/SGOT) 26 U/L (15-37) Alanine Aminotransferase (ALT/SGPT) 56 U/L (12-78) Alkaline Phosphatase 106 U/L (46-116) Total Creatine Kinase 51 U/L (26-308) Creatine Kinase MB 0.7 NG/ML (0.0-3.6) Creatine Kinase MB Relative Index 1.3 Troponin I 0.000 ng/mL (0.000-0.056) Pro-B-Type Natriuretic Peptide 27 pg/mL (0-125) Total Protein 7.7 G/DL (6.4-8.2) Albumin 3.6 G/DL (3.4-5.0) Globulin 4.1 g/dL Albumin/Globulin Ratio 0.9 (1.0-2.7) Lipase 156 U/L (73-393) EKG Diagnostic Results Rate: normal - 98 Rhythm: NSR ST Segments: no acute changes Last Vital Signs Date Time Temp Pulse Resp B/P (MAP) Pulse Ox O2 Delivery O2 Flow Rate FiO2 06/17/19 09:35 98.1 60 16 143/64 (90) 99 Room Air Status: improved Disposition: HOME, SELF-CARE Condition: Stable Scripts Guaifenesin/Dextromethorphan (Guaifenesin Dm Syrup) 5 Ml Syrup 1 TSP ORAL Q8H, #118 ML 0 Refills Prov: Jean Pierre Ward MD 06/17/19 Ibuprofen* (MOTRIN*) 600 Mg Tablet 600 MG ORAL Q8H PRN for For Pain, #30 TAB 0 Refills Prov: Jean Pierre Ward MD 06/17/19 Jean Pierre Ward MD Jun 17, 2019 09:55
[2019-06-17] MEDS ORDERED: Albuterol ud Inhalation HHN ONE (10:00)
[2019-06-17 10:10] VITALS: BP 137/73
--- NOTE | 2019-06-17 10:20 | NUR ---
ED Nurse Note: RT at bedside. blood/urine/flu swab sent to lab.
--- NOTE | 2019-06-17 10:33 | NUR ---
ED Nurse Note: cxr done at bedside. notified Dr. Ward regarding patient c/o JOLLY and left breast pain.
[2019-06-17 10:40] LABS: ANION GAP 11 mmol/L (5-15); BLOOD UREA NITROGEN 10 mg/dL (7-18); CALCIUM 8.6 MG/DL (8.5-10.1); CARBON DIOXIDE 23 MMOL/L (21-32); CHLORIDE 104 MMOL/L (98-107); CREATININE 0.7 MG/DL (0.55-1.30); POTASSIUM 3.7 MMOL/L (3.5-5.1); SODIUM 138 MMOL/L (136-145)
[2019-06-17 10:41] LABS: BASOPHILS % (AUTO) 1.1 % (0.0-2.0); EOSINOPHILS % (AUTO) 2.5 % (0.0-3.0); HEMATOCRIT 41.4 % (37.0-47.0); HEMOGLOBIN 13.4 G/DL (12.0-16.0); MEAN CORPUSCULAR VOLUME 86 FL (80-99); MONOCYTES % (AUTO) 9.2 % (1.0-10.0); NEUTROPHILS % (AUTO) 65.3 % (45.0-75.0); PLATELET COUNT 283 K/UL (150-450); RED CELL DISTRIBUTION WIDTH 13.7 % (11.6-14.8); WHITE BLOOD COUNT 5.9 K/UL (4.8-10.8)
[2019-06-17 10:57] LABS: ALANINE AMINOTRANSFERASE 56 U/L (12-78); ALBUMIN 3.6 G/DL (3.4-5.0); ALBUMIN/GLOBULIN RATIO 0.9 (1.0-2.7); ALKALINE PHOSPHATASE 106 U/L (46-116); ASPARTATE AMINO TRANSFERASE 26 U/L (15-37); BILIRUBIN,TOTAL 0.4 MG/DL (0.2-1.0); CKMB 0.7 NG/ML (0.0-3.6); CREATINE KINASE 51 U/L (26-308)
--- NOTE | 2019-06-17 10:59 | Diagnostic Imaging Report ---
Indication: Dyspnea Comparison: 10/23/2014 A single view chest radiograph was obtained. Findings: Cardiomediastinal appearance is within normal limits for age. The lungs are clear. Pulmonary vascularity is appropriate. The diaphragmatic contour is smooth and costophrenic angles are sharp. No pleural effusions are identified. The bones are unremarkable. Impression: No acute findings
[2019-06-17] MEDS ORDERED: IBUPROFEN600 MG ORAL (13:29)
[2019-06-17] MEDS ORDERED: GUAIFENESIN DM118 M1 ORAL (13:29)
[2019-06-17 13:43] VITALS: BP 131/72
[2019-06-17 13:50] VITALS: BP 131/72
--- NOTE | 2019-06-17 13:50 | NUR ---
ER DISCHARGE NOTE: Patient is cleared to be discharged per ERMD DR MCKEON, pt is aox4, on room air, with stable vital signs. pt was given dc and prescription instructions, pt was able to verbalize understanding, pt id band and iv site removed without complications. pt is able to ambulate with steady gait. pt took all belongings.
--- NOTE | 2019-06-20 15:25 | Cardiology Report ---
APPROVED REPORT EKG Measurement Heart [id number] Normal sinus rhythm Normal ECG
== END 2019-06-17 13:50 | disposition home or self-care (01) ==
LOC: EMR 10:00
DX: J06.9 Acute upper respiratory infection, unspecified (principal); B97.89 Other viral agents as the cause of diseases classified elsewhere; Z88.0 Allergy status to penicillin; Z88.8 Allergy status to other drugs, medicaments and biological substances; Z91.012 Allergy to eggs; E78.00 Pure hypercholesterolemia, unspecified; E11.9 Type 2 diabetes mellitus without complications; R06.00 Dyspnea, unspecified
CPT/HCPCS: 36415; 71045; 80053; 82550; 82553; 83690; 83880; 84484; 85025; 86710; 93005; 94640; 94664; Z7502; 99284

== ENCOUNTER 2019-09-19 10:22 | Emergency (ER) | payer MEDICAID ==
[~2019-09-19] VITALS: Ht 162.6 cm; Wt 72.6 kg
[~2019-09-19 10:22] MED LIST changes: +GUAIFENESIN DM118 M1 ORAL
[2019-09-19 10:30] VITALS: BP 140/79
--- NOTE | 2019-09-19 10:30 | NUR ---
Note brandon in EDM - 09/19/19 at 1214 by [email or web address] ED Nurse Note: pt brought in by ambulance for fall at [facility]. Pt reports falling while running down stairs, hit head on stair with abrasion to left side of face. Pt reports pain 5/10. Pt aao x 4, vital signs in stable condition
--- NOTE | 2019-09-19 10:30 | NUR ---
ED Nurse Note: Pt ambulated into ED from home CO pain in right big toe after getting manicure. pt aao x 4, pain 8/10, no drainage or discharge noted. Pt reports feeling pressure in area.
--- NOTE | 2019-09-19 10:36 | Emergency Room Report ---
History of Present Illness General Chief Complaint: Skin Rash/Abscess Source: Patient Present Illness HPI Patient with several days of increased pain and swelling of her right big toe. There is redness there. She had difficulty sleeping because of pain last night and took Tylenol with some relief. She states it is greater than 10 years since her last tetanus shot. She is not sure how her blood sugars are at this time. Pain is rated 8/10, sharp and aching with minimal radiation to the toe. She has nail kyrgyz on. History of diabetes. No history of trauma. Allergies: Coded Allergies: EGG (Verified Allergy, Unknown, 08/27/18) PENICILLINS (Unverified Allergy, Unknown, 08/27/18) SIMVASTATIN (Verified Allergy, Unknown, 08/27/18) Patient History Past Medical History: see triage record Social History: Denies: smoking, alcohol use, drug use Social History Narrative from home Reviewed Nursing Documentation: PMH: Agreed; PSxH: Agreed Nursing Documentation-PMH Past Medical History: No History, Except For Hx Cardiac Problems: Yes - high cholesterol Hx Hypertension: No Hx Pacemaker: No Hx Asthma: No Hx COPD: No Hx Diabetes: Yes Hx Cancer: No Hx Gastrointestinal Problems: No Hx Dialysis: No Hx Neurological Problems: No Hx Cerebrovascular Accident: No Hx Seizures: No Review of Systems All Other Systems: negative except mentioned in HPI Physical Exam Vital Signs Date Time Temp Pulse Resp B/P (MAP) Pulse Ox O2 Delivery O2 Flow Rate FiO2 09/19/19 10:26 98.4 87 16 142/80 (100) 99 Room Air Sp02 EP Interpretation: reviewed, normal General Appearance: well appearing, no apparent distress, GCS 15 Head: normocephalic, atraumatic Eyes: bilateral eye normal inspection, bilateral eye PERRL, bilateral eye EOMI ENT: moist mucus membranes Cardiovascular #1: regular rate, rhythm Gastrointestinal: normal inspection Musculoskeletal: gait/station normal Neurologic: alert, sensory intact - no peripheral neuropathy Psychiatric: mood/affect normal Skin: normal color, other - Erythema base of great toe not extending underneath nail Medical Decision Making Diagnostic Impression: Primary Impression: Paronychia Additional Impression: Diabetes Qualified Codes: E11.9 - Type 2 diabetes mellitus without complications ER Course Patient presents with pain and redness of her great toe. Clinically this appears to be a paronychia. Accu-Chek needs to be obtained. Antibiotics indicated. Tylenol given. Tetanus vaccination updated. Accu-Chek 185. Patient improved. Cussed treatment plan with patient. Also discussed the need for follow-up with her own physician. Patient stable for outpatient observation and treatment. Last Vital Signs Date Time Temp Pulse Resp B/P (MAP) Pulse Ox O2 Delivery O2 Flow Rate FiO2 09/19/19 12:01 98.3 85 12 125/68 99 Room Air Status: improved Disposition: HOME, SELF-CARE Condition: Improved Scripts Acetaminophen (Tylenol) 325 Mg Tablet 650 MG ORAL Q6H PRN for Prn Pain/Headache/Temp > 101, #16 TAB 0 Refills Prov: Maxwell Lora MD 09/19/19 Bacitracin (Bacitracin) 28.4 Gm Oint...g. 1 APPLIC TOPIC BID, #10 GM Prov: Maxwell Lora MD 09/19/19 Cephalexin* (KEFLEX*) 500 Mg Capsule 500 MG ORAL EVERY 6 HOURS, #28 CAP Prov: Maxwell Lora MD 09/19/19 Maxwell Lroa MD Sep 19, 2019 10:36
[2019-09-19] MEDS ORDERED: Bacitracin Oint UD TOPIC ONE ×2 (10:45→11:21)
[2019-09-19] MEDS ORDERED: Cephalexin 500mg cap ORAL ONE (10:45)
[2019-09-19] MEDS ORDERED: Tetanus/Diptheria/Pertussis IM ONE (10:45)
--- NOTE | 2019-09-19 10:45 | NUR ---
ED Nurse Note: ERMD at bedside
--- NOTE | 2019-09-19 11:40 | NUR ---
ER DISCHARGE NOTE: Patient is cleared to be discharged home per ERMD, pt is aox4, on room air, with stable vital signs. pt was given dc and prescription instructions, pt was able to verbalize understanding, pt id band removed. pt is able to ambulate with steady gait. pt took all belongings.
[2019-09-19] MEDS ORDERED: TYLENOL325 MG ORAL (11:45)
[2019-09-19] MEDS ORDERED: CEPHALEXIN500 MG ORAL (11:45)
[2019-09-19] MEDS ORDERED: BACITRACIN15 GM TOPIC (11:45)
[2019-09-19 12:01] VITALS: BP 125/68
== END 2019-09-19 12:01 | disposition home or self-care (01) ==
LOC: EMR 10:58
DX: L03.011 Cellulitis of right finger (principal)
CPT/HCPCS: 82962; 90471; 90715; Z7502; 99283

== ENCOUNTER → 2020-03-05 | Emergency (ER) | payer MEDICAID, OTHER ==
[~2020-03-05] VITALS: Ht 162.6 cm; Wt 68.0 kg
[~2020-03-05] MED LIST changes: +BACITRACIN15 GM TOPIC; +BENADRYL25 MG ORAL; +CEPHALEXIN500 MG ORAL; +DiphenhydrAMINE 50mg/ml Inj IM ONE; +TYLENOL325 MG ORAL
--- NOTE | 2020-03-05 01:35 | NUR ---
ED Nurse Note: Patient walked into the ER with complaints of allergic reaction and itchiness throughout her body. Per patient she ate egg, salad sigala and rice that triggered the allergic reaction. Patient took Banophen 25 mg po as prn meds for allergy but was not effective. Patient denies any respiratory distress. Placed on monitor bed
[2020-03-05 01:39] VITALS: BP 145/93
--- NOTE | 2020-03-05 01:46 | Emergency Room Report ---
History of Present Illness General Chief Complaint: Allergic Reaction Source: Patient Present Illness HPI This is a 54-year-old female with multiple environmental and food allergies. She presents with chief plaint of allergic reaction. After eating dinner tonight, she felt itching and has a rash to her arms and lower extremities. She took 1 Benadryl that helped. Similar symptom in the past. No nausea no vomiting. No respiratory issue. Denies any other complaint. Allergies: Coded Allergies: EGG (Verified Allergy, Unknown, 08/27/18) PENICILLINS (Unverified Allergy, Unknown, 08/27/18) SIMVASTATIN (Verified Allergy, Unknown, 08/27/18) COVID-19 Screening Contact w/high risk pt: No Recent Travel to affected area: No Experienced COVID-19 symptoms?: No COVID-19 Testing performed TERRESTRIAL ECOLOGIST: No Patient History Past Medical History: see triage record, old chart reviewed, DM, HTN Past Surgical History: none Pertinent Family History: none Social History: Denies: smoking Now: No Immunizations: other Reviewed Nursing Documentation: PMH: Agreed; PSxH: Agreed Nursing Documentation-PMH Hx Cardiac Problems: Yes - high cholesterol Hx Hypertension: No Hx Pacemaker: No Hx Asthma: No Hx COPD: No Hx Diabetes: Yes Hx Cancer: No Hx Gastrointestinal Problems: No Hx Dialysis: No Hx Neurological Problems: No Hx Cerebrovascular Accident: No Hx Seizures: No Review of Systems Eye: Denies: eye pain, blurred vision ENT: Denies: ear pain, nose congestion, throat swelling Respiratory: Denies: cough, shortness of breath Cardiovascular: Denies: chest pain, palpitations Gastrointestinal: Denies: abdominal pain, diarrhea, nausea, vomiting Musculoskeletal: Denies: back pain, joint pain Skin: Reports: rash Neurological: Denies: headache, numbness Endocrine: Denies: increased thirst, increased urine Hematologic/Lymphatic: Denies: easy bruising All Other Systems: negative except mentioned in HPI Physical Exam Vital Signs Date Time Temp Pulse Resp B/P (MAP) Pulse Ox O2 Delivery O2 Flow Rate FiO2 03/05/20 01:27 98.4 92 16 145/93 (110) 98 Room Air Vitals normal Sp02 EP Interpretation: reviewed, normal General Appearance: well appearing, no apparent distress, alert Head: normocephalic, atraumatic Eyes: bilateral eye PERRL, bilateral eye EOMI ENT: hearing grossly normal, normal pharynx Neck: full range of motion, supple, no meningismus Respiratory: chest non-tender, lungs clear, normal breath sounds Cardiovascular #1: regular rate, rhythm, no murmur Gastrointestinal: normal bowel sounds, non tender, no mass, no organomegaly, no bruit, non-distended Musculoskeletal: back normal, normal range of motion, gait/station normal Psychiatric: mood/affect normal Skin: rash - Mild erythematous urticaria to bilateral thighs Medical Decision Making Diagnostic Impression: Primary Impression: Allergic reaction Qualified Codes: T78.40XA - Allergy, unspecified, initial encounter ER Course Patient with allergic reaction. No evidence of any anaphylaxis or respiratory issue. Gave her dose of Benadryl here. Will discharge home. Because the symptom is mild, will hold off steroid for now. Last Vital Signs Date Time Temp Pulse Resp B/P (MAP) Pulse Ox O2 Delivery O2 Flow Rate FiO2 03/05/20 01:27 98.4 92 16 145/93 (110) 98 Room Air Status: improved Disposition: HOME, SELF-CARE Condition: Stable Scripts Diphenhydramine Hcl* (BENADRYL*) 25 Mg Capsule 50 MG ORAL Q6H PRN for Itching, #30 CAP Prov: Hal Martinez MD 03/05/20 Patient Instructions: Allergies Additional Instructions: Follow-up with your doctor in 7 days. You can either take Benadryl or your Atarax for itching and rash. Return if symptoms worsen. Hal Martinez MD Mar 05, 2020 01:46
[2020-03-05 01:53] VITALS: BP 124/72
--- NOTE | 2020-03-05 01:53 | NUR ---
ER DISCHARGE NOTE: Patient is cleared to be discharged per ERMD, pt is aox4, on room air, with stable vital signs. pt was given dc and prescription instructions, pt was able to verbalize understanding, pt id band removed. pt is able to ambulate with steady gait. pt took all belongings.
== END | disposition home or self-care (01) ==
LOC: EMR 01:43
DX: T78.40XA Allergy, unspecified, initial encounter (principal); X58.XXXA Exposure to other specified factors, initial encounter; Y92.9 Unspecified place or not applicable; Z88.0 Allergy status to penicillin; Z91.012 Allergy to eggs; Z88.8 Allergy status to other drugs, medicaments and biological substances; E11.9 Type 2 diabetes mellitus without complications; I10 Essential (primary) hypertension; E78.00 Pure hypercholesterolemia, unspecified; L50.9 Urticaria, unspecified
CPT/HCPCS: 96372; 99283; J1200